=== PATIENT | male | born 1995 | race African-American/Black ===

== ENCOUNTER 2016-08-27 01:25 | Emergency (ER) | payer BC ==
[~2016-08-27] VITALS: Ht 177.8 cm; Wt 77.1 kg
[2016-08-27 01:19] VITALS: BP 128/78
[2016-08-27] MEDS ORDERED: NEURONTIN100 MG ORAL (01:30)
--- NOTE | 2016-08-27 01:31 | Emergency Room Report ---
History of Present Illness General Chief Complaint: General Complaint Source: Patient Present Illness HPI Is a 21-year-old male with no past medical history. He presents by aimlessly chief complaint of arm numbness. This occurred when he bent his head down. This is ongoing for about a month. No fever chills but no nausea vomiting. No trauma. When he bent his neck and he only has no symptoms. Allergies: Coded Allergies: No Known Allergies (Unverified , 08/27/16) Patient History Past Medical History: see triage record, old chart reviewed Past Surgical History: none, other Pertinent Family History: none Social History: Reports: drug use Immunizations: other Reviewed Nursing Documentation: PMH: Agreed, PSxH: Agreed Nursing Documentation-PMH Past Medical History: No Stated History Review of Systems Eye: Denies: blurred vision, eye pain ENT: Denies: ear pain, nose congestion, throat swelling Respiratory: Denies: cough, shortness of breath Cardiovascular: Denies: chest pain, palpitations Gastrointestinal: Denies: abdominal pain, diarrhea, nausea, vomiting Musculoskeletal: Denies: back pain, joint pain Skin: Denies: rash Neurological: Denies: headache, numbness Endocrine: Denies: increased thirst, increased urine Hematologic/Lymphatic: Denies: easy bruising All Other Systems: negative except mentioned in HPI Physical Exam Vital Signs Date Time Temp Pulse Resp B/P Pulse Ox O2 Delivery O2 Flow Rate FiO2 08/27/16 01:09 98.6 70 16 128/78 99 vitals normal Sp02 EP Interpretation: reviewed, normal General Appearance: well appearing, no apparent distress, alert Head: normocephalic, atraumatic Eyes: bilateral eye EOMI, bilateral eye PERRL ENT: hearing grossly normal, normal pharynx Neck: full range of motion, supple, no meningismus Respiratory: chest non-tender, lungs clear, normal breath sounds Cardiovascular #1: regular rate, rhythm, no murmur Gastrointestinal: normal bowel sounds, non tender, no mass, no organomegaly, no bruit, non-distended Musculoskeletal: back normal, gait/station normal, normal range of motion Psychiatric: mood/affect normal Skin: warm/dry Medical Decision Making Diagnostic Impression: Primary Impression: Hand paresthesia Qualified Codes: R20.2 - Paresthesia of skin ER Course Patient with cervical radiculopathy with paresthesia. Most likely secondary to pinched nerve. No evidence of cauda equina syndrome, spinal epidural abscess, or neoplastic process. We'll discharge home with reassurance. Last Vital Signs Date Time Temp Pulse Resp B/P Pulse Ox O2 Delivery O2 Flow Rate FiO2 08/27/16 01:19 98.6 90 16 128/78 99 Status: improved Disposition: HOME, SELF-CARE Condition: Stable Scripts Gabapentin* (NEURONTIN*) 100 Mg Capsule 100 MG ORAL THREE TIMES A DAY, #30 CAP 0 Refills Prov: JENNY MICHELLE M.D. 08/27/16 Additional Instructions: Followup with your Dr. in 7 days. Return if symptom worsen. JENNY MICHELLE M.D. August 27, 2016 01:31
[2016-08-27 01:35] VITALS: BP 128/78
== END 2016-08-27 01:45 | disposition home or self-care (01) ==
LOC: EDBD 01:25 → EMR 01:40
DX: R20.2 Paresthesia of skin (principal); R59.0 Localized enlarged lymph nodes
CPT/HCPCS: 99283